=== PATIENT | female | born 1995 | race Caucasian/White ===

== ENCOUNTER 2017-05-27 22:41 | Emergency (ER) | payer BC ==
[~2017-05-27] VITALS: Ht 157.5 cm; Wt 65.6 kg
[~2017-05-27 22:41] MED LIST: SUMATRIPTAN SU100 MG PO
[2017-05-27 23:32] LABS: HEMATOCRIT 39.4 % (36.0-46.0); HEMOGLOBIN 13.3 G/DL (11.9-15.5); MCH 31.9 PG (29.0-34.0); MCHC 33.8 G/DL (30.0-36.0); MCV 94.5 FL (83-99); PLATELET COUNT 136 K/uL (156-360); RBC DIS.WIDTH-CV 12.1 % (11.8-14.6); RBC DIS.WIDTH-SD 42.5 % (39-53); RED BLOOD COUNT 4.17 M/uL (3.80-5.20); WHITE BLOOD COUNT 5.7 K/uL (4.1-10.2)
[2017-05-27 23:40] LABS: ALBUMIN 4.4 g/dL (3.2-4.8)
[2017-05-27 23:41] LABS: CHLORIDE 106 mEq/L (99-109); POTASSIUM 3.8 mEq/L (3.7-5.4); SODIUM 140 mEq/L (136-147)
[2017-05-27 23:43] LABS: GLUCOSE 98 mg/dL (70-99); TOTAL PROTEIN 6.7 g/dL (6.4-8.3)
[2017-05-27 23:45] LABS: TOTAL BILIRUBIN 0.2 mg/dL (0.0-1.0)
[2017-05-27 23:46] LABS: ALKALINE PHOSPHATASE 39 IU/L (3-129)
[2017-05-27 23:47] LABS: CREATININE 0.9 mg/dL (0.6-1.3); GFR ESTIMATE (CALCULATED) > 59 mL/min/
[2017-05-27 23:48] LABS: AST (GOT) 13 IU/L (2-34); UREA NITROGEN (BUN) 13 mg/dL (9-23)
[2017-05-27 23:49] LABS: ALT (GPT) 13 IU/L (3-49)
[2017-05-27 23:58] LABS: QUANTITATIVE HCG < 4.0 MIU/ML
[2017-05-28] MEDS ORDERED: ZOFRAN ODT4 MG PO (01:40)
[2017-05-28 02:42] LABS: APPEARANCE SL.HAZY ((CLEAR)); BILIRUBIN NEGATIVE; BLOOD NEGATIVE; COLOR YELLOW ((YELLOW)); GLUCOSE (STRIP) NEGATIVE; KETONES NEGATIVE; LEUKOCYTES NEGATIVE; NITRITE NEGATIVE; PROTEIN (STRIP) 30; SPECIFIC GRAVITY 1.029 (1.000-1.030); UROBILINOGEN 0.2 MG/DL (0.2-1.0)
[2017-05-28 02:45] LABS: BACTERIA RARE /HPF; EPITHELIAL CELLS 2+ /HPF; MUCUS TRACE /LPF; RED BLOOD CELLS 0-5 /HPF (0-5); UCUL ADDED? NO; WHITE BLOOD CELLS 0-5 /HPF (0-5)
[2017-05-28] MEDS ORDERED: PERCOCET 5/31 TABLET PO (04:21)
[2017-05-28 04:39] VITALS: BP 133/73
[2017-05-29] MEDS ORDERED: ULTRACET1 TABLET PO (19:17)
[2017-05-29] MEDS ORDERED: TORADOL10 MG PO (19:17)
== END 2017-05-28 04:40 | disposition home or self-care (01) ==
LOC: EME 22:41
DX: N83.201 Unspecified ovarian cyst, right side (principal); R11.2 Nausea with vomiting, unspecified; R19.7 Diarrhea, unspecified; G89.29 Other chronic pain; M54.9 Dorsalgia, unspecified
CPT/HCPCS: 74177; 76856; 80053; 81003; 84702; 85027; 99281; 99284; J3010; J7120

== ENCOUNTER 2017-05-29 15:34 | Emergency (ER) | payer BC ==
[~2017-05-29] VITALS: Ht 157.5 cm; Wt 64.2 kg
[~2017-05-29 15:34] MED LIST changes: +PERCOCET 5/31 TABLET PO; +ZOFRAN ODT4 MG PO
[2017-05-29 16:23] LABS: HEMATOCRIT 42.1 % (36.0-46.0); HEMOGLOBIN 14.2 G/DL (11.9-15.5); MCH 31.3 PG (29.0-34.0); MCHC 33.7 G/DL (30.0-36.0); MCV 92.9 FL (83-99); PLATELET COUNT 152 K/uL (156-360); RBC DIS.WIDTH-CV 11.8 % (11.8-14.6); RBC DIS.WIDTH-SD 40.3 % (39-53); RED BLOOD COUNT 4.53 M/uL (3.80-5.20); WHITE BLOOD COUNT 5.5 K/uL (4.1-10.2)
[2017-05-29 16:31] LABS: APPEARANCE CLEAR ((CLEAR)); BILIRUBIN NEGATIVE; BLOOD NEGATIVE; COLOR YELLOW ((YELLOW)); GLUCOSE (STRIP) NEGATIVE; KETONES 5; LEUKOCYTES NEGATIVE; NITRITE NEGATIVE; PROTEIN (STRIP) NEGATIVE; SPECIFIC GRAVITY 1.024 (1.000-1.030); UCUL ADDED? NO; UROBILINOGEN 0.2 MG/DL (0.2-1.0)
[2017-05-29 16:35] LABS: CHLORIDE 107 mEq/L (99-109); POTASSIUM 3.5 mEq/L (3.7-5.4); SODIUM 140 mEq/L (136-147)
[2017-05-29 16:37] LABS: GLUCOSE 86 mg/dL (70-99)
[2017-05-29 16:41] LABS: CREATININE 0.8 mg/dL (0.6-1.3); GFR ESTIMATE (CALCULATED) > 59 mL/min/
[2017-05-29 16:42] LABS: UREA NITROGEN (BUN) 8 mg/dL (9-23)
[2017-05-29 16:49] LABS: QUANTITATIVE HCG < 4.0 MIU/ML
[2017-05-29] MEDS ORDERED: ULTRACET1 TABLET PO (19:17)
[2017-05-29] MEDS ORDERED: TORADOL10 MG PO (19:17)
[2017-05-29 20:07] VITALS: BP 132/89
[2017-06-01 08:46] LABS: SOURCE SWAB
[2017-06-02] MEDS ORDERED: PERCOCET 5/31 TABLET PO (12:24)
[2017-06-02] MEDS ORDERED: ZOFRAN ODT4 MG PO (12:25)
[2017-06-02] MEDS ORDERED: NEXPLANON68 MG SC (12:26)
[2017-06-02] MEDS ORDERED: CELEXA20 MG PO (12:49)
== END 2017-05-29 20:04 | disposition home or self-care (01) ==
LOC: EME 15:34
PROVIDERS: Physician Assistant
DX: N83.201 Unspecified ovarian cyst, right side (principal); G43.909 Migraine, unspecified, not intractable, without status migrainosus; Z87.891 Personal history of nicotine dependence
CPT/HCPCS: 76856; 80048; 81003; 84702; 85027; 87210; 87491; 87591; 99281; 99285; J1885

== ENCOUNTER 2017-06-05 08:44 | Day surgery (SDC) | payer BC ==
[~2017-06-05] VITALS: Ht 157.5 cm; Wt 64.4 kg
[~2017-06-05 08:44] MED LIST changes: +CELEXA20 MG PO; +NEXPLANON68 MG SC; +TORADOL10 MG PO; +ULTRACET1 TABLET PO
[2017-06-05 09:04] VITALS: BP 127/74
[2017-06-05] MEDS ORDERED: PERCOCET 5/31 TABLET PO (11:59)
[2017-06-05] MEDS ORDERED: MOTRIN800 MG PO (11:59)
[2017-06-05 14:05] VITALS: BP 118/61
[2017-06-05 15:05] VITALS: BP 118/60
== END 2017-06-05 15:10 | disposition home or self-care (01) ==
LOC: SDC 08:44
PROVIDERS: Obstetrics & Gynecology
PROC: 0UB04ZZ Excision of Right Ovary, Percutaneous Endoscopic Approach (ICD-10-PCS; principal; 2017-06-05)
DX: N83.01 Follicular cyst of right ovary (principal); K66.0 Peritoneal adhesions (postprocedural) (postinfection); Z87.891 Personal history of nicotine dependence; D69.6 Thrombocytopenia, unspecified
CPT/HCPCS: 81025; 86850; 86900; 86901; 88173; 88305; J0690; J1100; J1170; J1885; J2250; J2405; J2710; J3010; J7643; S0020